=== PATIENT | female | born 1940 | race Caucasian/White ===

== ENCOUNTER → 2016-06-24 | Outpatient (CLI) | payer MEDICARE, BC ==
[~2016-06-24] MED LIST: ACCUPRIL10 MG PO; CALCIUM 600 +1 EAC3 PO; HYDROCODON-ACE1 EAC7 PO; LO-DOSE ASPIRIN81 M2 PO; LORCET 5-325 M1 EACH PO; MOBIC7.5 MG PO; TIZANIDINE HCL4 MG PO; ZOCOR10 MG PO; ZOLOFT25 MG PO
== END | disposition home or self-care (01) ==
LOC: CDC 11:43
DX: R94.31 Abnormal electrocardiogram [ECG] [EKG] (principal); M48.04 Spinal stenosis, thoracic region
CPT/HCPCS: 93000

== ENCOUNTER 2016-06-28 05:24 | Inpatient (IN) | payer OTHER, BC ==
[~2016-06-28] VITALS: Ht 152.4 cm; Wt 65.9 kg
[~2016-06-28 05:24] MED LIST changes: -HYDROCODON-ACE1 EAC7 PO; -TIZANIDINE HCL4 MG PO
[2016-06-28 06:03] VITALS: BP 145/82
[2016-06-28 07:19] LABS: METH RESISTANT S AUREUS PCR POSITIVE (NEGATIVE)
[2016-06-28 07:51] LABS: PROBE CHECK PASS
[2016-06-28 16:01] VITALS: BP 136/83
[2016-06-28 19:38] VITALS: BP 136/76
[2016-06-29] VITALS (7 sets, daily range): BP systolic 107–132; BP diastolic 55–79
[2016-06-29 06:40] LABS: HEMATOCRIT 35.5 % (36.0-46.0); MEAN PLAT.VOLUME 10.6 uM^3 (9.5-12.4); PLATELET COUNT 169 K/uL (156-360); RBC DIS.WIDTH-CV 14.1 % (11.8-14.6); RED BLOOD COUNT 3.66 M/uL (3.80-5.20)
[2016-06-29 07:08] LABS: ANION GAP 10 MEQ/L (2-14); CHLORIDE 102 MEQ/L (99-109); GFR ESTIMATE (CALCULATED) > 59 mL/min/; GLUCOSE 122 mg/dL (70-99); POTASSIUM 4.5 MEQ/L (3.7-5.4); SAMPLE HEMOLYSIS CHECK 0; SAMPLE ICTERIC CHECK 0; SAMPLE LIPEMIA CHECK 0; SODIUM 136 MEQ/L (136-147); UREA NITROGEN (BUN) 16 mg/dL (9-23)
[2016-06-29 07:12] LABS: WHITE BLOOD COUNT 18.4 K/uL (4.1-10.2)
[2016-06-29] MEDS ORDERED: HYDROCODON-ACE1 EAC7 PO (07:59)
[2016-06-29] MEDS ORDERED: TIZANIDINE HCL4 MG PO (07:59)
== END 2016-06-29 14:50 | disposition home or self-care (01) | DRG 460 ==
LOC: 2SOUTH → 3EAST 05:24 → 2SOUTH 05:24 → 3EAST 12:33 → 2SOUTH 13:48 → 3EAST 14:16
PROVIDERS: Hospitalist; Neurological Surgery
DX: M51.14 Intervertebral disc disorders with radiculopathy, thoracic region (principal); M51.04 Intervertebral disc disorders with myelopathy, thoracic region; I10 Essential (primary) hypertension; E78.5 Hyperlipidemia, unspecified; E66.9 Obesity, unspecified; Z96.643 Presence of artificial hip joint, bilateral; Z96.611 Presence of right artificial shoulder joint; F41.9 Anxiety disorder, unspecified; E78.00 Pure hypercholesterolemia, unspecified; I25.10 Atherosclerotic heart disease of native coronary artery without angina pectoris; Z79.82 Long term (current) use of aspirin; Z68.28 Body mass index [BMI] 28.0-28.9, adult; Z88.2 Allergy status to sulfonamides; Z98.1 Arthrodesis status
CPT/HCPCS: 72020; 72040; 72070; 76000; 80048; 85027; 86850; 86900; 86901; 87641; 94799; 95938; C1713; J0330; J0690; J1100; J1170; J1580; J1885; J2175; J2250; J2405; J2930; J3010; J3370; J3480; S0020